=== PATIENT | male | born 2000 | race Asian ===

== ENCOUNTER 2018-01-02 22:16 | Emergency (ER) | payer MEDICAID ==
[~2018-01-02] VITALS: Ht 177.8 cm; Wt 59.0 kg
[2018-01-02] MEDS ORDERED: HYDROCODONE/APAP 5-325MG TABLET PO ONE (23:00)
[2018-01-02] MEDS ORDERED: HYDROCODONE/APAP 5-325MG TABLET ONE (23:10)
--- NOTE | 2018-01-03 00:28 | NUR ---
Patient discharged to home in stable conditon. Patient reported having no pain after pain med administration. Written and verbal after care instructions given. Patient verbalizes understanding of instructions. Patient able to ambulate unassisted with steady gait. Patient left with all personal belongings.
[2018-01-03 00:33] VITALS: BP 116/78
== END 2018-01-03 00:28 | disposition home or self-care (01) ==
LOC: ER 22:24
DX: S63.502A Unspecified sprain of left wrist, initial encounter (principal); J45.909 Unspecified asthma, uncomplicated; W17.89XA Other fall from one level to another, initial encounter; Y93.31 Activity, mountain climbing, rock climbing and wall climbing; Y92.89 Other specified places as the place of occurrence of the external cause; Y99.8 Other external cause status
CPT/HCPCS: 29125; 73110; 99284; A4663

== ENCOUNTER 2019-09-29 16:04 | Inpatient (IN) | payer MEDICAID, OTHER ==
[~2019-09-29] VITALS: Ht 177.8 cm; Wt 57.4 kg
[2019-09-29] MEDS ORDERED: KETOROLAC TROMETHAMINE 15 MG INJ IVP ONE (17:00)
[2019-09-29] MEDS ORDERED: LORAZEPAM 2 MG/1 ML VIAL IV ONE (17:00)
[2019-09-29] MEDS ORDERED: DEXAMETHASONE SOD PHOSPHATE 4 MG INJ IV ONE (17:00)
[2019-09-29] MEDS ORDERED: IV NORMAL SALINE 1000 ML BAG IV ONE ×2 (17:00→17:45)
[2019-09-29] MEDS ORDERED: DEXAMETHASONE SOD PHOSPHATE 10 MG INJ ONE (17:03)
[2019-09-29] MEDS ORDERED: KETOROLAC TROMETHAMINE 15 MG INJ ONE ×2 (17:03→17:04)
[2019-09-29] MEDS ORDERED: LORAZEPAM 2 MG/1 ML VIAL ONE (17:03)
[2019-09-29 17:17] LABS: BASOPHILS # (AUTO) 0.1 K/uL (0.0-8.0); BASOPHILS % (AUTO) 0.3 % (0.0-2.0); HEMOGLOBIN 16.3 g/dL (12.5-16.3); LYMPHOCYTES # (AUTO) 1.3 K/uL (20.0-40.0); LYMPHOCYTES % (AUTO) 7.2 % (20.5-51.5); MEAN CORPUSCULAR HEMOGLOBIN 32.5 uug (23.8-33.4); MEAN CORPUSCULAR HGB CONC 34 g/dL (32.5-36.3); MEAN CORPUSCULAR VOLUME 96.1 fL (73.0-96.2); MONOCYTES # (AUTO) 0.8 K/uL (2.0-10.0); MONOCYTES % (AUTO) 4.8 % (0.0-11.0); NEUTROPHILS # (AUTO) 15.4 K/uL (1.8-8.9); NEUTROPHILS % (AUTO) 87.7 % (38.5-71.5); PLATELET COUNT (AUTO) 202 K/uL (152-348); WHITE BLOOD COUNT (AUTO) 17.6 K/uL (3.6-10.2)
[2019-09-29 17:25] LABS: CREATININE 1.4 mg/dL (0.6-1.3); POTASSIUM 4.1 mmol/L (3.5-5.1)
[2019-09-29 17:30] LABS: BILIRUBIN,DIRECT 0.3 mg/dL (0.0-0.2); BILIRUBIN,TOTAL 3.1 mg/dL (0.2-1.0); TOTAL PROTEIN, SERUM 8.2 g/dL (6.4-8.2)
[2019-09-29] MEDS ORDERED: VANCOMYCIN IV 1,000 MG in IV DEXTROSE 5% 250 ML IV ONE (17:45)
[2019-09-29] MEDS ORDERED: AZITHROMYCIN 250 MG TABLET PO ONE (17:45)
[2019-09-29] MEDS ORDERED: CEFTRIAXONE 2 G in IV DEXTROSE 5% 100 ML IV ONE (17:45)
[2019-09-29] MEDS ORDERED: ONDANSETRON 4 MG/2 ML VIAL IV ONE (17:45)
[2019-09-29] MEDS ORDERED: ONDANSETRON 4 MG/2 ML VIAL ONE (17:55)
[2019-09-29] MEDS ORDERED: CEFTRIAXONE /D5W 50ML IVPB **ER PYXIS IV ONE (17:56)
[2019-09-29] MEDS ORDERED: VANCOMYCIN IV 200 ML ONE (17:56)
[2019-09-29] MEDS ORDERED: AZITHROMYCIN 250 MG TABLET ONE (18:09)
[2019-09-29 18:37] LABS: *BILIRUBIN,URIN NEGATIVE (NEGATIVE); *BLOOD, URINE NEGATIVE (NEGATIVE); *CLARITY,URINE CLEAR (CLEAR); *COLOR,URINE YELLOW (YELLOW); *KETONES,URINE 1+ (NEGATIVE); *UROBILINOGEN,URINE 0.2 E.U./dl (NORMAL); LEUKOCYTE ESTERASE ,URINE NEGATIVE (NEGATIVE); NITRITE, URINE NEGATIVE (NEGATIVE); UGLUCOSE NEGATIVE (NEGATIVE)
[2019-09-29] MEDS ORDERED: LIDOCAINE HCL 1% 20 ML VIAL ONE (18:58)
[2019-09-29] MEDS ORDERED: LIDOCAINE HCL 1% 20 ML VIAL IJ ONE (19:00)
[2019-09-29] MEDS ORDERED: MORPHINE SULFATE 4 MG/1 ML DISP.SYRIN IV ONE (19:30)
[2019-09-29 20:33] LABS: CSF GLUCOSE 61 mg/dL (40-70); CSF PROTEIN 30 mg/dL (15-45)
[2019-09-29] MEDS ORDERED: MORPHINE SULFATE 4 MG/1 ML DISP.SYRIN ONE (20:39)
[2019-09-29] MEDS ORDERED: ACETAMINOPHEN 325 MG TABLET PO PRN (21:00)
[2019-09-29] MEDS ORDERED: KETOROLAC TROMETHAMINE 15 MG INJ IVP PRN (21:00)
[2019-09-29] MEDS ORDERED: ONDANSETRON 4 MG/2 ML VIAL IV PRN (21:00)
[2019-09-29] MEDS: IV NS 1000 ML 1,000 ML IV PRN (22:29)
[2019-09-29 22:41] VITALS: BP 108/57
[2019-09-29] MEDS: MORPHINE SULFATE 2 MG/1 ML DISP.SYRIN IV PRN (23:49)
[2019-09-30] MEDS ORDERED: LORAZEPAM 2 MG/1 ML VIAL IV PRN (00:45)
[2019-09-30 00:53] VITALS: BP 128/55
[2019-09-30] MEDS: BENZOCAINE/MENTH/CETYLPYRD LOZENGE MM PRN (01:13)
[2019-09-30 05:47] VITALS: BP 97/49
[2019-09-30] MEDS: PANTOPRAZOLE SODIUM 40 MG TABLET.DR PO SCH (06:25)
[2019-09-30 07:58] LABS: HEMATOCRIT 40.6 % (36.7-47.1); HEMOGLOBIN 13.8 g/dL (12.5-16.3); LYMPHOCYTES # (AUTO) 0.8 K/uL (20.0-40.0); LYMPHOCYTES % (AUTO) 6.5 % (20.5-51.5); MEAN CORPUSCULAR HGB CONC 34 g/dL (32.5-36.3); MEAN CORPUSCULAR VOLUME 96.8 fL (73.0-96.2); MONOCYTES # (AUTO) 0.8 K/uL (2.0-10.0); MONOCYTES % (AUTO) 6.9 % (0.0-11.0); NEUTROPHILS # (AUTO) 10.3 K/uL (1.8-8.9); NEUTROPHILS % (AUTO) 86.6 % (38.5-71.5); PLATELET COUNT (AUTO) 175 K/uL (152-348); WHITE BLOOD COUNT (AUTO) 11.9 K/uL (3.6-10.2)
[2019-09-30 08:00] VITALS: BP 92/52
[2019-09-30 08:11] LABS: BILIRUBIN,TOTAL 1.1 mg/dL (0.2-1.0); CREATININE 0.9 mg/dL (0.6-1.3); MAGNESIUM 2.2 mg/dL (1.8-2.4); PHOSPHOROUS 3.5 mg/dL (2.5-4.9); POTASSIUM 4.4 mmol/L (3.5-5.1); TOTAL PROTEIN, SERUM 6.5 g/dL (6.4-8.2)
[2019-09-30 11:12] VITALS: BP 103/50
[2019-09-30 12:12] LABS: *MONOTEST NEGATIVE (NEGATIVE)
[2019-09-30] MEDS: VANCOMYCIN IV 1,000 MG in IV DEXTROSE 5% 250 ML IV SCH ×2 (12:55→23:10)
[2019-09-30] MEDS: IV NS 1000 ML 1,000 ML IV PRN (12:58)
[2019-09-30] MEDS: MORPHINE SULFATE 2 MG/1 ML DISP.SYRIN IV PRN ×2 (13:08→22:40)
[2019-09-30] MEDS ORDERED: ACYCLOVIR IV 1,000 MG in IV DEXTROSE 5% 250 ML IV SCH (13:30)
[2019-09-30] MEDS: DEXTROSE 5% IV SCH ×2 (14:37→21:51)
[2019-09-30] MEDS: ACYCLOVIR IV SCH ×2 (14:37→21:51)
[2019-09-30 15:40] VITALS: BP 96/45
[2019-09-30] MEDS: CEFTRIAXONE 1 G in IV DEXTROSE 5% 50 ML IV SCH (17:55)
[2019-09-30] MEDS ORDERED: IV NS 1000 ML 1,000 ML IV PRN (20:30)
[2019-10-01 04:30] VITALS: BP 92/34
[2019-10-01] MEDS: ACYCLOVIR IV SCH ×2 (05:14→14:33)
[2019-10-01] MEDS: DEXTROSE 5% IV SCH ×2 (05:14→14:33)
[2019-10-01 06:11] LABS: BASOPHILS % (AUTO) 0.2 % (0.0-2.0); EOSINOPHILS % (AUTO) 0.6 % (0.0-7.0); HEMATOCRIT 38.2 % (36.7-47.1); HEMOGLOBIN 12.9 g/dL (12.5-16.3); LYMPHOCYTES # (AUTO) 2.2 K/uL (20.0-40.0); LYMPHOCYTES % (AUTO) 28.6 % (20.5-51.5); MEAN CORPUSCULAR HEMOGLOBIN 32.8 uug (23.8-33.4); MEAN CORPUSCULAR HGB CONC 34 g/dL (32.5-36.3); MEAN CORPUSCULAR VOLUME 97.2 fL (73.0-96.2); MONOCYTES # (AUTO) 0.7 K/uL (2.0-10.0); MONOCYTES % (AUTO) 9.4 % (0.0-11.0); NEUTROPHILS # (AUTO) 4.7 K/uL (1.8-8.9); NEUTROPHILS % (AUTO) 61.2 % (38.5-71.5); PLATELET COUNT (AUTO) 167 K/uL (152-348); RED BLOOD CELL COUNT(AUTO) 3.93 MIL/uL (4.06-5.63); WHITE BLOOD COUNT (AUTO) 7.6 K/uL (3.6-10.2)
[2019-10-01 06:23] LABS: CREATININE 0.9 mg/dL (0.6-1.3); PHOSPHOROUS 3.1 mg/dL (2.5-4.9); POTASSIUM 3.9 mmol/L (3.5-5.1)
[2019-10-01] MEDS: PANTOPRAZOLE SODIUM 40 MG TABLET.DR PO SCH (06:45)
[2019-10-01] MEDS: VANCOMYCIN IV 1,000 MG in IV DEXTROSE 5% 250 ML IV SCH (11:39)
[2019-10-01 12:15] VITALS: BP 100/58
[2019-10-01 16:17] VITALS: BP 101/54
[2019-10-01] MEDS: MORPHINE SULFATE 2 MG/1 ML DISP.SYRIN IV PRN (17:04)
[2019-10-01] MEDS: CEFTRIAXONE 1 G in IV DEXTROSE 5% 50 ML IV SCH (17:47)
[2019-10-01] MEDS: BENZOCAINE/MENTH/CETYLPYRD LOZENGE MM PRN (17:47)
[2019-10-03 09:12] LABS: *WEST NILE CSF IGG Negative (Negative)
[2019-10-03 10:09] LABS: *WEST NILE CSF IGM Negative (Negative)
== END 2019-10-01 20:10 | disposition home or self-care (01) | DRG 720 ==
LOC: ER 16:05 → TELE3 21:40 → MEDSURG3 09-30 20:53
PROVIDERS: ADMIT Internal Medicine; ATTEND Internal Medicine
PROC: 009U3ZX Drainage of Spinal Canal, Percutaneous Approach, Diagnostic (ICD-10-PCS; principal; 2019-09-29)
DX: A41.89 Other specified sepsis (principal); A87.9 Viral meningitis, unspecified; B97.89 Other viral agents as the cause of diseases classified elsewhere; J02.9 Acute pharyngitis, unspecified; J45.909 Unspecified asthma, uncomplicated; L30.9 Dermatitis, unspecified; M54.2 Cervicalgia
CPT/HCPCS: 36415; 70030-TC; 71045; 83605; 83735; 84100; 84157; 85025; 85730; 86308; 86403; 87040; 87070; 87086; 87205; 87400; 87806; 89051; 93005; A4663; G0378; J0133; J0696; J1100; J1885; J2060; J2270; J2405; J3370; J3490; J7030; J7060; Q0144